=== PATIENT | female | born 1990 | race Caucasian/White ===

== ENCOUNTER 2020-05-07 19:10 | Emergency (ER) | payer OTHER, MEDICAID, SELFPAY ==
--- NOTE | ~2020-05-07 | XR_ITS ---
EXAMINATION: XR foot LT min 3V DATE: 05/07/2020 19:40 INDICATION: Right foot pain, initial encounter TECHNIQUE: Dorsoplantar, lateral, and 2 oblique views of the right foot were obtained. COMPARISON: None. FINDINGS: There is an acute, traumatic, oblique, intra-articular fracture at the lateral base of the fourth middle phalanx which appears to involve greater than 50% of the articular surface. Soft tissue swelling surrounds the fracture. No additional acute osseous findings are evident. IMPRESSION: 1. Acute intra-articular fracture at the lateral base of the fourth middle phalanx. Reviewed, dictated and finalized at location A. IMPRESSION: 1. Acute intra-articular fracture at the lateral base of the fourth middle phal anx.
[2020-05-07 19:30] VITALS: BP 120/82; PULSE 98; RESP 16; TEMP 37.4; O2SAT 99
--- NOTE | 2020-05-07 19:31 | ED.LOWEXIN ---
HPI - Extremity Injury (Lower) General Chief Complaint: Extremity Injury, Lower Stated Complaint: injury Time Seen by Provider: 05/07/20 19:31 Source: patient Mode of arrival: ambulatory Limitations: no limitations History of Present Illness HPI Narrative: Vee Cheatham is a 30 yo female with a PMH of depression, anxiety, gall bladder disease, who comes to express care with injury to L forth toe that occurred this AM at work. Toe was hit with door and has increased pain and swelling throughout the day. Referred here for evaluation by employer. Related Data Home Medications Medication Instructions Recorded Confirmed buspirone 10 mg DAILY 05/07/20 05/07/20 sertraline 100 mg DAILY 05/07/20 05/07/20 Allergies Allergy/AdvReac Type Severity Reaction Status Date / Time No Known Allergies Allergy Verified 05/07/20 19:14 Review of Systems Review of Systems: Narrative: CONSTITUTIONAL: Denies fever, chills, sweats. EYES: Denies visual changes, redness, discharge. ENT: Denies rhinorrhea, congestion, sore throat, otalgia. CARDIOVASCULAR: Denies chest pain, palpitations, edema. RESPIRATORY: Denies dyspnea, wheezing, cough GASTROINTESTINAL: Denies abdominal pain, nausea, vomiting, diarrhea. GENITOURINARY: Denies dysuria, hematuria, abnormal discharge SKIN: Denies rash or itching. NEUROLOGIC: Denies numbness, or focal weakness. PSYCHIATRIC: Denies anxiety or depression. L foot, 4th toe pain and swelling post injury PMFSH Past Medical History Medical History Gall bladder disease Family History Family History Other No acute medical problems Social History Social History (Updated 05/07/20 @ 19:36 by Caroline Ho CNP) Smoking status: Never smoker Alcohol intake: current Comments At time of signature, I agree with nursing past medical, surgical, social and family history. There is no relevant family history pertinent to the presenting complaint. Exam Narrative: Exam Narrative: GENERAL: This is a well-nourished, well-developed patient, in mild distress. HEAD: normocephalic, atraumatic. EYES: Sclera clear/white. Vision is grossly intact. EARS: External ears normal, Hearing grossly intact. NOSE: External nose normal without nasal discharge, nares without redness, no rhinorrhea. THROAT: Mucous membranes moist, NECK: Neck supple, CARDIOVASCULAR: Regular rate and rhythm without murmurs, gallops, or rubs. RESPIRATORY: Clear to auscultation. Breath sounds equal bilaterally. No wheezes, rales, or rhonchi. GASTROINTESTINAL: Abdomen soft, SKIN: warm, intact with no suspicious lesions or rash, good texture and turgor. NEURO: awake, alert, and oriented to person, place and time. There were no obvious focal neurologic abnormalities. EXTREMITIES: Normal range of motion on R- swelling and ecchymosis of 4th toe of L foot, 2+ pedal pulses, minimal movement wo pain in toes 4/5 BACK: Nontender without deformity Course Course Emergency Course: X-ray left foot-findings : acute intra-articular fracture at lateral base of fourth middle phalanx placed om danilo wrap and post op shoe, norco for pain, and referred to orthopedics Vital Signs Vital signs: Vital Signs Temperature 99.4 F 05/07/20 19:30 Pulse Rate 98 05/07/20 19:30 Respiratory Rate 16 05/07/20 19:30 Blood Pressure 120/82 05/07/20 19:30 Pulse Oximetry 99 05/07/20 19:30 Temperature 99.4 F 05/07/20 19:30 Pulse Rate 98 05/07/20 19:30 Respiratory Rate 16 05/07/20 19:30 Blood Pressure 120/82 05/07/20 19:30 Pulse Oximetry 99 05/07/20 19:30 MDM - Extremity Injury (Lower) Differential Diagnosis Differential diagnosis: Likely ankle sprain and strain, fracture of toe and other (Foot fracture vs foot contusion) Discharge Plan Discharge Clinical Impression: Contusion of foot, left Qualifiers: Encounter type: initi
== END 2020-05-07 20:02 | disposition home or self-care (01) ==
PROVIDERS: Emergency Provider Nurse Practitioner; PCP Family Medicine
DX: S90.32XA Contusion of left foot, initial encounter (principal); W22.8XXA Striking against or struck by other objects, initial encounter
CPT/HCPCS: 73630; 99213; G0463

== ENCOUNTER 2020-12-04 16:56 | Emergency (ER) | payer BC, SELFPAY ==
[2020-12-04 17:04] VITALS: BP 132/99; PULSE 82; RESP 16; TEMP 37.1; O2SAT 98
--- NOTE | 2020-12-04 17:21 | ED.URI ---
HPI - URI/Sore Throat General Chief Complaint: Upper Respiratory Infection Stated Complaint: sore throat Time Seen by Provider: 12/04/20 17:21 Source: patient Mode of arrival: ambulatory Limitations: no limitations History of Present Illness HPI Narrative: Vee Cheatham is a 30 yo female with with PMH of depression who comes to express care with c/o sore throat that started Monday is progressively getting worse. History of strep, states she is able to swallow and to eat but does not want to eat denies any symptoms of loss of taste or smell denies any fever. She states that her mucous membranes feel dry even though she is drinking fluids all day Related Data Home Medications Medication Instructions Recorded Confirmed buspirone 10 mg DAILY 05/07/20 05/07/20 sertraline 100 mg DAILY 05/07/20 05/07/20 Vitamins 12/04/20 12/04/20 Allergies Allergy/AdvReac Type Severity Reaction Status Date / Time No Known Allergies Allergy Verified 05/07/20 19:14 Review of Systems Review of Systems: Narrative: CONSTITUTIONAL: Denies fever, chills, sweats. EYES: Denies visual changes, redness, discharge. ENT: Denies rhinorrhea, congestion, has sore throat, states that left tonsil is enlarged , otalgia. CARDIOVASCULAR: Denies chest pain, palpitations, edema. RESPIRATORY: Denies dyspnea, wheezing, cough GASTROINTESTINAL: Denies abdominal pain, nausea, vomiting, diarrhea. GENITOURINARY: Denies dysuria, hematuria, abnormal discharge SKIN: Denies rash or itching. NEUROLOGIC: Denies numbness, or focal weakness. PSYCHIATRIC: Denies anxiety or depression. [facility] Past Medical History Medical History Gall bladder disease No acute medical problems Family History Family History Other No acute medical problems Social History Social History Smoking status: Never smoker Alcohol intake: current Comments At time of signature, I agree with nursing past medical, surgical, social and family history. There is no relevant family history pertinent to the presenting complaint. Blood pressure elevation; may be due to rib pain referred back to her doctor next week to further assess blood pressure Exam Narrative: Exam Narrative: GENERAL: This is a well-nourished, well-developed patient, in mild distress. HEAD: normocephalic, atraumatic. EYES: Sclera clear/white. Vision is grossly intact. EARS: External ears normal,. Hearing grossly intact. NOSE: External nose normal without nasal discharge, nares without redness, no rhinorrhea. THROAT: Mucous membranes moist, posterior pharynx erythema with some white dots on the left side in the posterior pharynx NECK: Neck supple, non-tender CARDIOVASCULAR: Regular rate and rhythm without murmurs, gallops, or rubs. RESPIRATORY: Clear to auscultation. Breath sounds equal bilaterally. No wheezes, rales, or rhonchi. GASTROINTESTINAL: Abdomen soft, SKIN: warm, intact with no suspicious lesions or rash, good texture and turgor. NEURO: awake, alert, and oriented to person, place and time. There were no obvious focal neurologic abnormalities. Steady gait EXTREMITIES: Normal range of motion. BACK: Nontender without deformity Course Course Emergency Course: Patient came to [facility] for assessment of sore throat that started on Monday and is progressively getting worse Strep test performed that was negative- sent for cx- started on amoxicillin Covid test performed was negative Patient started on amoxicillin, cepacol lozenges, discussed handwashing and infection control. Vital Signs Vital signs: Vital Signs Temperature 98.8 F 12/04/20 17:04 Pulse Rate 82 12/04/20 17:04 Respiratory Rate 16 12/04/20 17:04 Blood Pressure 132/99 H 12/04/20 17:04 Pulse Oximetry 98 12/04/20 17:04 Temperature 98.8 F 12/04/20 17:04 Pulse R
== END 2020-12-04 18:03 | disposition home or self-care (01) ==
PROVIDERS: Emergency Provider Nurse Practitioner; PCP Family Medicine
DX: J02.9 Acute pharyngitis, unspecified (principal); Z20.822 Contact with and (suspected) exposure to COVID-19; F32.9 Major depressive disorder, single episode, unspecified
CPT/HCPCS: 87081; 87426; 87880; 99213; C9803; G0463

== ENCOUNTER 2021-02-10 08:40 | Outpatient (CLI) | payer BC, SELFPAY ==
--- NOTE | 2021-02-10 11:30 | NEURO_ITS ---
Impression: # Complains of nocturnal paresthesia of hands. # Moderate left Carpal Tunnel Syndrome. # Mild right Carpal Tunnel Syndrome. # No ulnar neuropathy. # Normal needle/EMG exam. Nerve Conduction Studies Anti Sensory Summary Table Stim Site NR Peak (ms) P-T Amp (?V) Site1 Site2 Delta-P (ms) Dist (cm) Yassine (m/s) Left Median Anti Sensory (2-3nd Digit) Wrist 4.1 14.0 Wrist 2-3nd Digit 4.1 14.0 34 Wrist 4.9 17.5 Wrist 2-3nd Digit 4.1 14.0 34 Right Median Anti Sensory (2-3nd Digit) Wrist 3.8 13.6 Wrist 2-3nd Digit 3.8 14.0 37 Wrist 3.9 15.4 Wrist 2-3nd Digit 3.8 14.0 37 Left Radial Anti Sensory (Base 1st Digit) Wrist 1.6 23.6 Wrist Base 1st Digit 1.6 0.0 Right Radial Anti Sensory (Base 1st Digit) Wrist 1.6 27.7 Wrist Base 1st Digit 1.6 0.0 Left Ulnar Anti Sensory (5th Digit) Wrist 2.2 54.6 Wrist 5th Digit 2.2 14.0 64 Right Ulnar Anti Sensory (5th Digit) Wrist 2.2 20.4 Wrist 5th Digit 2.2 14.0 64 Motor Summary Table Stim Site NR Onset (ms) O-P Amp (mV) Site1 Site2 Delta-0 (ms) Dist (cm) Yassine (m/s) Left Median Motor (Abd Poll Brev) Wrist 5.8 2.9 Elbow Wrist 4.4 25.0 57 Elbow 10.2 2.9 Right Median Motor (Abd Poll Brev) Wrist 4.0 2.0 Elbow Wrist 4.4 26.0 59 Elbow 8.4 1.1 Left Ulnar Motor (Abd Dig Minimi) Wrist 2.0 7.0 A Elbow Wrist 4.6 27.0 59 A Elbow 6.6 5.7 Right Ulnar Motor (Abd Dig Minimi) Wrist 2.6 5.7 A Elbow Wrist 4.7 27.0 57 A Elbow 7.3 4.6 F Wave Studies NR F-Lat (ms) L-R F-Lat (ms) Left Median (Mrkrs) (Abd Poll Brev) 28.13 0.53 Right Median (Mrkrs) (Abd Poll Brev) 27.60 0.53 Left Ulnar (Mrkrs) (Abd Dig Min) 25.86 0.35 Right Ulnar (Mrkrs) (Abd Dig Min) 26.21 0.35 EMG Side Muscle Nerve Root Ins Act Fibs Amp Dur Recrt Comment Right 1stDorInt Ulnar C8-T1 Nml Nml Nml Nml Nml Right Ext Indicis Radial (Post Int) C7-8 Nml Nml Nml Nml Nml Right Ext Digitorum Radial (Post Int) C7-8 Nml Nml Nml Nml Nml Right BrachioRad Radial C5-6 Nml Nml Nml Nml Nml Right PronatorTeres Median C6-7 Nml Nml Nml Nml Nml Right Abd Poll Brev Median C8-T1 Nml Nml Nml Nml Nml Left 1stDorInt Ulnar C8-T1 Nml Nml Nml Nml Nml Left Ext Indicis Radial (Post Int) C7-8 Nml Nml Nml Nml Nml Left Ext Digitorum Radial (Post Int) C7-8 Nml Nml Nml Nml Nml Left BrachioRad Radial C5-6 Nml Nml Nml Nml Nml Left PronatorTeres Median C6-7 Nml Nml Nml Nml Nml Left Abd Poll Brev Median C8-T1 Nml Nml Nml Nml Nml MTDD
== END 2021-02-10 08:41 | disposition home or self-care (01) ==
PROVIDERS: PCP Family Medicine; Visit Provider Family Medicine
DX: G56.03 Carpal tunnel syndrome, bilateral upper limbs (principal)
CPT/HCPCS: 95886; 95911

== ENCOUNTER 2021-11-14 01:42 | Emergency (ER) | payer BC, SELFPAY ==
[2021-11-14 01:51] VITALS: BP 141/90; PULSE 94; RESP 18; TEMP 36.4; O2SAT 97
--- NOTE | 2021-11-14 04:03 | PC.NURSE ---
Pt to intake desk and tells RN to Take my name of the list. Pt ambulated out in no distress w/ steady gait.
== END 2021-11-14 04:26 | disposition left against medical advice (07) ==
PROVIDERS: PCP Family Medicine
DX: S69.92XA Unspecified injury of left wrist, hand and finger(s), initial encounter (principal)
CPT/HCPCS: 99199

== ENCOUNTER 2021-11-14 14:21 | Emergency (ER) | payer BC, SELFPAY ==
--- NOTE | ~2021-11-14 | XR_ITS ---
EXAMINATION: XR finger 1st LT min 2V DATE: 11/14/2021 15:09 INDICATION: Left thumb pain. Fall. TECHNIQUE: 3 views of left thumb were obtained. COMPARISON: None. FINDINGS: There is an oblique fracture of diaphysis of first metacarpal. The distal fracture fragment demonstrates one cortical width radial displacement, 32 degrees palmar angulation, and impaction. Ruby int spaces are normal. IMPRESSION: 1. Oblique fracture of diaphysis of first metacarpal. Reviewed, dictated and finalized at location A. [employer]
[2021-11-14 14:58] VITALS: BP 145/94; PULSE 93; RESP 16; TEMP 37.2; O2SAT 100
--- NOTE | 2021-11-14 15:35 | ED.UPPEXIN ---
HPI - Extremity Injury (Upper) General Chief Complaint: Extremity Injury, Upper Stated Complaint: left thumb injury Time Seen by Provider: 11/14/21 15:36 Source: patient and RN notes reviewed Mode of arrival: ambulatory Limitations: no limitations History of Present Illness HPI narrative: 31-year-old female presents with concern for injury to the first digit of her left hand. Reports yesterday she tripped over her dogs causing pain and swelling at the base of the first digit. She reports she took Tylenol. complaint: injury to: left and finger Related Data Home Medications Medication Instructions Recorded Confirmed buspirone 10 mg DAILY 05/07/20 05/07/20 sertraline 100 mg DAILY 05/07/20 05/07/20 Vitamins 12/04/20 12/04/20 phentermine mg 11/14/21 topiramate 11/14/21 Allergies Allergy/AdvReac Type Severity Reaction Status Date / Time No Known Allergies Allergy Verified 05/07/20 19:14 Review of Systems Review of Systems: CONSTITUTIONAL: Denies malaise, chills, sweats, or fever. CARDIOVASCULAR: Denies chest pain, palpitations, or edema. RESPIRATORY: Denies cough or dyspnea. SKIN: Denies rash or itching, redness, open skin MUSCULOSKELETAL: Reports bruising, swelling, pain to the base of the first digit of the left hand NEUROLOGIC: Denies numbness, weakness All systems reviewed & are unremarkable except as noted in HPI and below PMFSH Past Medical History Medical History Gall bladder disease No acute medical problems Family History Family History Other No acute medical problems Social History Social History Smoking status: Never smoker Alcohol intake: current Comments At time of signature, agree with nursing past medical, surgical, social and family history. There is no relevant family history pertinent to the presenting complaint Exam Narrative: GENERAL: Well-appearing, well-nourished, and in no acute distress. HEAD: Normocephalic, atraumatic. EYES: PERRLA, conjunctivae clear NECK: Supple. CHEST: Speaks in full sentences. No respiratory distress. HEART: Regular rate and rhythm. Normal and equal peripheral pulses. EXTREMITIES: First digit of left hand has normal strength and sensation, limited range of motion. Moderate edema and ecchymosis at the base of the digit. 5/5 strength with digit flexion. Normal sensation with sensitivity to light touch and pain. Tenderness to the base of the digit. No open wounds, no skin tenting, no devitalized tissue or atrophy, no trophic changes, no obvious deformity, alignment normal, nearby joints and structures intact. Distal pulses palpable and equal bilaterally, skin warm, dry, pink. Capillary refill less than 3 seconds. Can perform okay sign, no scissoring, can perform thumbs up sign SKIN: Warm, dry, no rash. NEURO: Alert and oriented x3. PSYCH: Normal mood and affect Course Course Emergency Course: Patient is aware of diagnosis, understands and agrees to treatment plan. Anticipatory guidance given. Patient agrees to follow-up as directed and is aware of reasons to seek care at the emergency department. Portions of this record may have been created with voice recognition software Level of Care: Express Care Visit Vital Signs Vital signs: Vital Signs Temperature 99.0 F 11/14/21 14:58 Pulse Rate 93 11/14/21 14:58 Respiratory Rate 16 11/14/21 14:58 Blood Pressure 145/94 H 11/14/21 14:58 Pulse Oximetry 100 11/14/21 14:58 Temperature 99.0 F 11/14/21 14:58 Pulse Rate 93 11/14/21 14:58 Respiratory Rate 16 11/14/21 14:58 Blood Pressure 145/94 H 11/14/21 14:58 Pulse Oximetry 100 11/14/21 14:58 Reviewed. Procedures Orthopedic Splinting/Casting Injury #1: Splinting/Casting Date: 11/14/21 Splinting/Casting Time: 15:52 Side: left Upper
== END 2021-11-14 16:04 | disposition home or self-care (01) ==
PROVIDERS: Emergency Provider Nurse Practitioner; PCP Family Medicine
DX: S62.202A Unspecified fracture of first metacarpal bone, left hand, initial encounter for closed fracture (principal); W18.09XA Striking against other object with subsequent fall, initial encounter
CPT/HCPCS: 29125; 73140; 99214; G0463

== ENCOUNTER → 2021-11-22 03:54 | Outpatient (CLI) | payer BC, SELFPAY ==
[2021-11-22 20:23] LABS: SARS-CoV-2 RNA PCR Negative
== END ==
PROVIDERS: PCP Family Medicine; Visit Provider Plastic Surgery
DX: Z01.812 Encounter for preprocedural laboratory examination (principal); Z20.822 Contact with and (suspected) exposure to COVID-19
CPT/HCPCS: C9803; U0003; U0005

== ENCOUNTER 2021-11-25 01:41 | Day surgery (SDC) | payer BC, SELFPAY ==
[2021-11-15 15:41] VITALS: BMI 32.7
--- NOTE | 2021-11-15 15:51 | PC.NURSE ---
Report to the Outpatient Waiting Room, entrance under the green pavilion located off [facility], at time 0630 on date 11/25/21. OR Time: 0830. - You will be asked a series of questions to screen for COVID 19 for your protection. - A mask is required within the hospital. - No visitors are allowed at this time. Patient visitors will be guided where to wait when not with patient. Preoperative COVID Testing Requirements: COVID TEST 11/22 AT 0800 No COVID Test needed if: (proof is required; if not received patient will have Rapid Test prior to entry) - Patient has received COVID Vaccine at least 14 days prior to procedure date or - Patient has positive COVID test result within last 90 days of surgery date. COVID Test needed if above criteria is not met If not COVID vaccinated a COVID test must be conducted within 72 hours of surgery and patient is asked to isolate self from time of testing until procedure. You will go to the [facility] for your COVID testing. The [facility] site is located at the corner of [address] [facility]. You will only be called if COVID results are positive and your surgeon may reschedule your elective surgery date. Patients may have clear liquids (water, carbonated beverages, clear teas, apple juice) until 3 hours prior to surgery with a maximum of 20 ounces. - No food from midnight until time of surgery Take the following medications with a SIP of water the morning of surgery: BUSPIRONE, SERTRALINE, PAIN PILL (IF NEEDED) Medications to discontinue per physician: VITAMINS/SUPPLEMENTS Date to take last dose: 11/21/21 Please no make-up, nail rwandan, hairspray, perfume, deodorant, or body powder the day of surgery. No jewelry (including any body piercings) or valuables the day of surgery, leave them at home. Please take a shower or bath the night before, or the morning of, surgery with an antibacterial soap. Wear comfortable, loose fitting clothing. - Jewelry must be removed prior to entering the operating room. Rings and piercings that are not removed may be cut off. - The hospital will not accept responsibility for valuables. - Please leave all valuables, including medications, at home the day of surgery. If you are going home after surgery, a licensed carrier driver must drive you home. - NO public transportation without another adult. - We recommend that an adult stay with you for 24 hours following discharge. - We also recommend that you do not drive, make important decision, drink alcoholic beverages, or take any drugs that were not prescribed by your health care provider for at least 24 hours after your discharge time. Follow any additional instructions given to you from your surgeon. Telephone instructions given to GISSEL BRADLEY and asked if any additional questions and then verbalized understanding. Patient advised to call surgeon office or pre surgery nurse liaison [phone] if any additional questions.
--- NOTE | 2021-11-24 09:26 | P.PNAN_ITS ---
Anes - Initial Pre Proc Eval Procedure: Operation Date: 11/25/21 08:30 Proposed Procedures p Closed Reduction, Possible Open Reduction Internal Fixation Left First Metacarpal Fracture - Herrera Hwang MD Date/Time: 11/24/21 09:26 Surgeon: Herrera Hwang MD Pre Op Diagnosis: left 1st metacarpal fx Patient Data Age: 31 Gender: F Height: 1.57 m Weight: 81.19 kg Allergies Allergy/AdvReac Type Severity Reaction Status Date / Time No Known Allergies Allergy Verified 11/25/21 06:40 Home Medications Medication Instructions Recorded Confirmed Type buspirone 10 mg PO DAILY 05/07/20 11/25/21 History sertraline 100 mg PO DAILY 05/07/20 11/25/21 History Vitamins 12/04/20 12/04/20 History hydrocodone-acetaminophen 1 tablet PO Q6H PRN #10 tablet 11/14/21 11/25/21 Rx ibuprofen 600 mg PO QID PRN #30 tablet 11/14/21 11/25/21 Rx phentermine 37.5 mg PO DAILY 11/14/21 11/25/21 History multivitamin 1 tablet PO DAILY 11/15/21 11/25/21 History Patient hx anesthesia problems: none Family hx anesthesia problems: none Results Review: All pre-operative results and documents have been reviewed as part of the pre-operative evaluation. [facility] Past Medical History Medical History Anxiety Depression Gall bladder disease No acute medical problems Family History Family History Other No acute medical problems Social History Social History Smoking packs per day: 0.5 Smoking cigarettes per day: 10.0 Years smoked: 12 Smoking pack-years: 6.00 Smoking status: Former smoker Tobacco type: cigarettes Smoking end date: 09/13/21 Alcohol intake: current Alcohol use details: 3/MONTH Substance use: never Substance use type: does not use Living arrangements: with family Additional living arrangements comments: BOYFRIEND AND CHILD Spiritual care concerns: No Anes - Eval Final PreProcedure Day of Procedure 11/24/21 09:26 Patient weight: obese Heart: regular rate and rhythm Lungs: clear to auscultation and normal air movement Airway: Mallampati scale class II Neurological: alert and oriented Last oral intake: >/= 8 hours ASA classification: II Emergent: no Anesthetic plan: proceed Anesthesia type and monitoring: general LMA and standard monitoring Results Review: All pre-operative results and documents have been reviewed as part of the pre-operative evaluation. Informed Consent: The patient's anesthetic plan and its attendant risks and benefits were discussed with the patient/family/POA. Questions were solicited and answers provided to the satisfaction of the patient/family/POA.
--- NOTE | 2021-11-24 17:27 | PM.HPGS ---
History of Present Illness History of Present Illness Consent: Risks, benefits, and alternatives have been discussed and questions answered. Patient agrees to proceed with procedure. Chief complaint: left 1st metacarpal fx Narrative: Vee Cheatham is a 31 year old female who sustained a closed fracture of the left thumb metacarpal November 13 walking her dog at her home on a leash. She fell to the ground. x-rays done that day indicate an apex dorsal proximal shaft fracture that is oblique. There is slight comminution. She has no regional osteoarthritis and no evidence osteoporosis. Our plan is for closed or possible open reduction and internal fixation with pins or plates. She is aware of possible complications such as nerve injury, infection in the skin or bone, loss of the fixation, some degree of malalignment. There are other possible complications and she would like to proceed under general anesthesia Review of Systems Review of Systems: CONSTITUTIONAL: Denies malaise, chills, sweats, or fever. CARDIOVASCULAR: Denies chest pain, palpitations, or edema. RESPIRATORY: Denies cough or dyspnea. SKIN: Denies rash or itching, redness, open skin MUSCULOSKELETAL: Reports bruising, swelling, pain to the base of the first digit of the left hand NEUROLOGIC: Denies numbness, weakness All systems reviewed & are unremarkable except as noted in HPI and below PMFSH Past Medical History Medical History Anxiety Depression Gall bladder disease No acute medical problems Family History Family History Other No acute medical problems Social History Social History Smoking packs per day: 0.5 Smoking cigarettes per day: 10.0 Years smoked: 12 Smoking pack-years: 6.00 Smoking status: Former smoker Tobacco type: cigarettes Smoking end date: 09/13/21 Alcohol intake: current Alcohol use details: 3/MONTH Substance use: never Substance use type: does not use Additional living arrangements comments: BOYFRIEND AND CHILD Spiritual care concerns: No Meds Home Medications and Allergies Home Medications Medication Instructions Recorded Confirmed Type buspirone 10 mg PO DAILY 05/07/20 11/15/21 History sertraline 100 mg PO DAILY 05/07/20 11/15/21 History Vitamins 12/04/20 12/04/20 History hydrocodone-acetaminophen 1 tablet PO Q6H PRN #10 tablet 11/14/21 11/15/21 Rx ibuprofen 600 mg PO QID PRN #30 tablet 11/14/21 11/15/21 Rx phentermine 37.5 mg PO DAILY 11/14/21 11/15/21 History multivitamin 1 tablet PO DAILY 11/15/21 11/15/21 History Allergies Allergy/AdvReac Type Severity Reaction Status Date / Time No Known Allergies Allergy Verified 11/15/21 15:38 Exam Narrative: this patient is alert and cooperative she is 5 ft 2 Weight is 179 lb and provide an excellent history. HENMT: Other: there are no functional abnormalities in the head and neck Eyes: Sclera: sclerae normal Chest: Other: clear to auscultation Resp: Effort & Inspection: normal respiratory effort Cardio: Rate: regular rate Rhythm: regular rhythm GI: GI Palp: Yes Soft to palpation Skin: General skin exam: normal color and no rashes or lesions noted Neuro: General: gait normal Speech: normal speech Motor exam (neuro): Normal motor muscle tone present throughout Extrem: General: normal exam except as noted Other: tenderness and mild swelling of the left thumb metacarpal Psych: Mental Status: mental status grossly normal Assessment and Plan Assessment and plan (1) Closed fracture of left thumb: Code(s): S62.502A - Fracture of unspecified phalanx of left thumb, initial encounter for closed fracture Status: Acute Additional Plan closed or open reduction and internal fixation of the left thumb metacarpal fracture
[2021-11-25] VITALS (10 sets, daily range): BP systolic 115–132; BP diastolic 64–85; PULSE 80–100; RESP 16–20; TEMP 36.1–36.7; O2SAT 97–100
--- NOTE | ~2021-11-25 | XR_ITS ---
EXAMINATION: XR surgery orthopedic DATE: 11/25/2021 10:55 INDICATION: ORIF of a fracture of the left first metacarpal TECHNIQUE: 13 fluoroscopic images of the left thumb were obtained during procedure performed by Dr. Neto Alcantara. Radiologist was not present for the imaging or procedure. The amount of fluoroscopy time used d uring this procedure was 1.9 minutes. COMPARISON: 11/14/2021 FINDINGS: Initial images demonstrate 2 mm ulnar displacement of an oblique mid diaphyseal fracture of the left first metacarpal. Subsequent images demonstrate percutaneous a wire advanced obliquely across the serge gth of the metacarpal likely for mobilization and dorsal plate and screw fixation of the fracture. Mi nimal change in 1.5 mm residual ulnar displacement following removal of the percutaneous wire. No oth er fractures identified. Normal alignment and joint spaces throughout the remainder the visualized le ft hand. IMPRESSION: 1. Near-anatomic alignment post dorsal plate and screw fixation of a mid diaphyseal fracture of the l eft first metacarpal. Reviewed, dictated and finalized at location A. HEN CLERK IMPRESSION: 1. Near-anatomic alignment post dorsal plate and screw fixation of a mid diaphy seal fracture of the left first metacarpal.
[2021-11-25] MEDS: LACTATED RINGERS 1,000 ML 30 ML IV CONT ×2 (07:00→11:50)
[2021-11-25] MEDS: ACETAMINOPHEN 500 MG TABLET 1000 MG PO (07:00)
[2021-11-25] MEDS: KETOROLAC 15 MG/ML VIAL (*BKC) IV PUSH (07:33)
--- NOTE | 2021-11-25 08:15 | WPDHPUPDATE1 ---
History and Physical Update Update Date/Time: 11/25/21 08:15 History and Physical has been reviewed, including an updated exam of the patient. There are NO changes in the patient's condition. Risks, benefits, and alternatives have been discussed and questions answered. Patient agrees to proceed with procedure.
[2021-11-25] MEDS: ceFAZolin 2 GM/D5W 50 ML 2 GM/50 ML BAG IVPB (08:26)
[2021-11-25] MEDS: LIDO 1%/EPINEPHRINE/PF 1:200,000 30 ML VIAL 20 ML XX (09:01)
[2021-11-25] MEDS: BUPIVACAINE HCL 0.25% PF 30 ML VIAL INFILTRATE (10:51)
--- NOTE | 2021-11-25 11:27 | W.PM.PROC2 ---
Procedure Note - Detailed Date of Procedure 11/25/21 Pre-op Diagnosis left 1st metacarpal fx Post-op Diagnosis same Procedure Performed Open reduction and internal plate fixation of the left 1st metacarpal Surgeon Herrera Hwang MD [employer] Jaylen Anesthesia general Description of Procedure The patient still had her splint on in the holding area and the thumb area was indicated with a the skin marker. She was taken to the operating room and placed supine on the operating table. The splint was removed and time-out was held and confirmed. The extremity was prepped and draped in usual fashion. She was given general endotracheal anesthesia. The image intensifier was brought in and we made an attempt to reduce the fracture. This was not successful. The marking was placed on the 1st metacarpal for surgical access. This area was infiltrated with 1% lidocaine with epinephrine. The tourniquet was inflated under the compression wrap to 250 mmHg. The wrap was removed. The incision was made as marked. The interspace between the extensor pollicis longus and extensor pollicis brevis was incised over the length of the metacarpal and the fracture site was identified. There was no comminution found. The fracture was somewhat oblique. It was easily reduced. It was initially retained with a longitudinal 0.6 mm K-wire. Anatomic reduction was obtained. We elected to use a semi tubular plate with 10 holes from the modular handset. This was applied and fixed with 1.5 mm screws and the fixation was also imaged. One hole near the fracture line did not receive a screw. A near anatomic alignment was maintained throughout this part of the procedure.. The site was irrigated the tourniquet was released the periosteal tissue was repaired with 4-0 Monocryl over the plate. The extensor tendons were not involved with the repair. Some subcutaneous sutures were placed again protecting neurovascular structures. The skin was closed with a running 4-0 Monocryl suture. A dressing was applied and a thumb spica splint allowing IP joint range of motion. Preoperatively she was given 2 g of Ancef, oral Tylenol 1000 mg, and Toradol 15 mg IV. postop she is prescribed some refill on her 600 mg ibuprofen she has some hydrocodone at home and prefers as little of that as possible Estimated Blood Loss -5.0 Tourniquet Time 9 Drains No Packing No Pathology none sent Complications No immediate complications Condition stable Disposition PACU
== END 2021-11-25 13:32 | disposition home or self-care (01) ==
PROVIDERS: PCP Family Medicine; Visit Provider Plastic Surgery
PROC: (CPT 26615; principal; 2021-11-25 08:30)
DX: S62.242A Displaced fracture of shaft of first metacarpal bone, left hand, initial encounter for closed fracture (principal); W18.39XA Other fall on same level, initial encounter; F41.8 Other specified anxiety disorders; Z87.891 Personal history of nicotine dependence; E66.9 Obesity, unspecified; Z68.31 Body mass index [BMI] 31.0-31.9, adult
CPT/HCPCS: 26615; A4565; A9270; C1713; J0690; J1100; J1885; J2250; J2405; J2704; J3010; J7120

== ENCOUNTER 2022-06-16 15:36 | Emergency (ER) | payer BC, SELFPAY ==
--- NOTE | 2022-06-16 15:40 | ED.URI ---
HPI - URI/Sore Throat General Stated Complaint: uri Time Seen by Provider: 06/16/22 15:40 Source: patient Mode of arrival: ambulatory Limitations: no limitations History of Present Illness HPI Narrative: Ms. Cheatham is a 32-year-old female patient presenting to the clinic today with complaints of possible upper respiratory infection. She reports she is having sore throat, body aches, nasal congestion, chills, low-grade temperature, and headache x1 day she reports the symptoms began last night. Did take a COVID test earlier this morning and that was negative. No known exposure to anybody with COVID, flu, or strep. MD elicited complaint: sore throat and nasal congestion Related Data Home Medications Medication Instructions Recorded Confirmed buspirone 10 mg tablet 10 mg PO DAILY 05/07/20 11/25/21 sertraline 100 mg tablet 100 mg PO DAILY 05/07/20 11/25/21 Vitamins 12/04/20 12/04/20 phentermine 37.5 mg tablet 37.5 mg PO DAILY 11/14/21 11/25/21 multivitamin 1 tablet PO DAILY 11/15/21 11/25/21 Allergies Allergy/AdvReac Type Severity Reaction Status Date / Time No Known Allergies Allergy Verified 11/25/21 06:40 Review of Systems Review of Systems: Pertinent positives per HPI. Patient denies any rash, visual changes, dizziness, shortness of breath, chest pain, palpitations, nausea, vomiting, diarrhea, constipation, abdominal pain, or any urinary issues. PMFSH Past Medical History Medical History Anxiety Depression Gall bladder disease No acute medical problems Family History Family History Other No acute medical problems Social History Social History Smoking packs per day: 0.5 Smoking cigarettes per day: 10.0 Years smoked: 12 Smoking pack-years: 6.00 Smoking status: Former smoker Tobacco type: cigarettes Smoking end date: 09/13/21 Alcohol intake: current Alcohol use details: 3/MONTH Substance use: never Substance use type: does not use Additional living arrangements comments: BOYFRIEND AND CHILD Spiritual care concerns: No Comments At the time of my signature, I reviewed and agree with the nursing past medical, surgical, social, and family history. There is no relevant family history pertinent to the patient complaint. Exam Narrative: General: Well-developed, obese, in no apparent distress Head: Normocephalic, atraumatic Eyes: Pupils equally round and reactive to light bilaterally, EOM intact, sclera and conjunctive clear, no discharge, lids normal Ears: TMs intact and clear, ear canals clear, no drainage, grossly hearing normal. Nose: Nares patent, clear nasal discharge, no inflammation, no sinus tenderness. Mouth: Oral pharynx without lesions or masses, good dentition, MMM. Oropharynx mildly red, postnasal drip Neck: Supple, trachea midline, no enlargement of anterior or posterior cervical nodes, no thyroid masses or goiter palpable. Cardio: Regular rate and rhythm, s1 and s2 normal, no murmur appreciated. Resp: Clear to auscultation bilaterally, no rhonchi, rales, wheezing or rubs Course Course Emergency Course: Portions of this record may have been created with voice recognition software. Level of Care: Express Care Visit Vital Signs Vital signs: Vital signs reviewed MDM - URI/Sore Throat MDM Narrative Medical decision making narrative: At the time of visit patient is resting comfortably on the exam table. COVID testing was completed in the clinic and was negative. I suspect patient has viral syndrome likely to be COVID. Recommend retesting for COVID in 2 days. Supportive measures were discussed with the patient she voiced understanding of discharge instructions and agrees to treatment plan. Differential Diagnosis Differential diagnosis: Likely upper respiratory infection, otit
[2022-06-16 15:53] VITALS: BP 137/91; PULSE 117; RESP 16; TEMP 37.3; O2SAT 100
== END 2022-06-16 16:24 | disposition home or self-care (01) ==
PROVIDERS: Emergency Provider Nurse Practitioner Family; PCP Family Medicine
DX: B34.9 Viral infection, unspecified (principal); Z20.822 Contact with and (suspected) exposure to COVID-19; Z87.891 Personal history of nicotine dependence; F41.9 Anxiety disorder, unspecified; F32.A Depression, unspecified
CPT/HCPCS: 87426; 99213; C9803; G0463

== ENCOUNTER 2022-10-08 08:04 | Emergency (ER) | payer BC, SELFPAY ==
[2022-10-08 08:17] VITALS: BP 129/82; PULSE 81; RESP 18; TEMP 36.2; O2SAT 100
--- NOTE | 2022-10-08 08:19 | ED.URI ---
HPI - URI/Sore Throat General Chief Complaint: Upper Respiratory Infection Stated Complaint: Sore Throat, Ears Irritation Time Seen by Provider: 10/08/22 08:24 Source: patient Mode of arrival: ambulatory Limitations: no limitations History of Present Illness HPI Narrative: 32 y/o female presented for c/o right ear pain since last night and right sided throat pain for 4 days. Endorses she has had sinus pressure and congestion for several weeks. Endorses productive cough yellow/white sputum. Rates pain 5/10. States dtr looked in her ear and saw a scratch with some bleeding, which occurred before the pain. Denies tinnitus, dizziness, n/v/d/f/c. Taking Tylenol and ibuprofen. Denies sick contacts. Related Data Home Medications Medication Instructions Recorded Confirmed buspirone 10 mg tablet 10 mg PO DAILY 05/07/20 10/08/22 sertraline 100 mg tablet 100 mg PO DAILY 05/07/20 10/08/22 multivitamin 1 tablet PO DAILY 11/15/21 10/08/22 Allergies Allergy/AdvReac Type Severity Reaction Status Date / Time No Known Allergies Allergy Verified 10/08/22 08:17 Review of Systems Review of Systems: CONSTITUTIONAL: Denies malaise, chills, or fever. EYES: Denies visual changes, redness, or discharge. ENT: Denies rhinorrhea, congestion, sinus pain, Reports ear pain and sore throat. CARDIOVASCULAR: Denies chest pain, palpitations, or edema. RESPIRATORY: Denies cough or dyspnea. GASTROINTESTINAL: Denies abdominal pain, nausea, vomiting, diarrhea SKIN: Denies rash or itching. MUSCULOSKELETAL: Denies myalgia. NEUROLOGIC: Denies headache. All systems reviewed & are unremarkable except as noted in HPI and below PMFSH Past Medical History Medical History Anxiety Depression Gall bladder disease No acute medical problems Family History Family History Other No acute medical problems Social History Social History Smoking packs per day: 0.5 Smoking cigarettes per day: 10.0 Years smoked: 12 Smoking pack-years: 6.00 Smoking status: Former smoker Tobacco type: cigarettes Smoking end date: 09/13/21 Alcohol intake: current Alcohol use details: 3/MONTH Substance use: never Substance use type: does not use Additional living arrangements comments: BOYFRIEND AND CHILD Spiritual care concerns: No Comments At time of signature, agree with nursing past medical, surgical, social and family history. There is no relevant family history pertinent to the presenting complaint Exam Narrative: GENERAL: Well-appearing, well-nourished EYES: PERRLA, conjunctivae clear ENT: Nares clear. Mucous membranes moist. TMs pearly smith with normal light reflex bilaterally; no tragal tenderness. Right canal with scant bloody drainage without active bleeding. Oropharynx erythematous without lesions. Tonsils enlarged 2+and without exudate, no drooling, no hoarseness, no trismus, uvula midline. NECK: Supple. No lymphadenopathy, endorses right anterior cervical tenderness with palpation CHEST: Clear to auscultation, breath sounds equal. No wheezing, rhonchi, rales, or stridor. HEART: Regular rate and rhythm. No murmur heard. SKIN: Warm, dry, no rash. NEURO: Alert and oriented x3. Course Course Emergency Course: Patient is aware of diagnosis, understands and agrees to treatment plan. Anticipatory guidance given. Patient agrees to follow-up as directed and is aware of reasons to seek care at the emergency department. Portions of this record may have been created with voice recognition software Level of Care: Express Care Visit Vital Signs Vital signs: Vital Signs Temperature 97.1 F L 10/08/22 08:17 Pulse Rate 81 10/08/22 08:17 Respiratory Rate 18 10/08/22 08:17 Blood Pressure 129/82 10/08/22 08:17 Pulse Oximetry 100 10/08/22 08:17 Oxygen Delivery Room
== END 2022-10-08 08:42 | disposition home or self-care (01) ==
PROVIDERS: Emergency Provider Nurse Practitioner Family; PCP Family Medicine
DX: J06.9 Acute upper respiratory infection, unspecified (principal); Z87.891 Personal history of nicotine dependence
CPT/HCPCS: 99213; G0463

== ENCOUNTER 2023-02-15 09:23 | Emergency (ER) | payer BC, SELFPAY ==
[2023-02-15 09:33] VITALS: BP 141/98; PULSE 82; RESP 16; TEMP 37.2; O2SAT 99
--- NOTE | 2023-02-15 09:33 | ED.DIZZY ---
HPI - Dizziness General Chief Complaint: Dizziness Stated Complaint: dizziness Time Seen by Provider: 02/15/23 09:32 Source: patient Mode of arrival: ambulatory Limitations: no limitations History of Present Illness HPI Narrative: Vee is a 32-year-old female patient presenting to the clinic today with complaints of dizziness, lightheadedness, and visual changes. States she is having blurry vision with some floaters. She fell on Monday-tripped on a sidewalk and landed prone. Denies hitting her head but she does not recall the fall. States she is also having a little bit of right wrist pain. She denies headache currently. Stated she had a sharp pain in her head when she was coming into the clinic today. She contacted her PCP and they told her to come to the express care or urgent care to be evaluated as they did not have openings in the clinic. MD elicited complaint: dizziness, lightheadedness and other (Visual changes) Related Data Home Medications Medication Instructions Recorded Confirmed multivitamin 1 tablet PO DAILY 11/15/21 02/15/23 bupropion HCl 150 mg 24 hr tablet, mg PO 02/15/23 extended release escitalopram oxalate 10 mg tablet mg 02/15/23 lorazepam 0.5 mg tablet 0.5 mg PO DIRECTED 02/15/23 02/15/23 norgestimate 0.18 mg/0.215 mg/0.25 1 tablet PO DAILY 02/15/23 02/15/23 mg-ethinyl estradiol 25 mcg tablet (Tri-Lo-Trixie) Allergies Allergy/AdvReac Type Severity Reaction Status Date / Time No Known Allergies Allergy Verified 02/15/23 09:30 Review of Systems Review of Systems: Pertinent positives per HPI. Patient denies any fever, chills, rash, cough, runny nose, sore throat, shortness of breath, chest pain, palpitations, nausea, vomiting, diarrhea, constipation, abdominal pain, or any urinary issues. [facility] Past Medical History Medical History Anxiety Depression Gall bladder disease No acute medical problems Family History Family History Other No acute medical problems Social History Social History Smoking packs per day: 0.5 Smoking cigarettes per day: 10.0 Years smoked: 12 Smoking pack-years: 6.00 Smoking status: Former smoker Tobacco type: cigarettes Smoking end date: 09/13/21 Alcohol intake: current Alcohol use details: 3/MONTH Substance use: never Substance use type: does not use Living arrangements: with family Additional living arrangements comments: BOYFRIEND AND CHILD Spiritual care concerns: No Comments At the time of my signature, I reviewed and agree with the nursing past medical, surgical, social, and family history. There is no relevant family history pertinent to the patient complaint. Exam Narrative: General: Well-developed, well nourished, in no apparent distress Head: Normocephalic, atraumatic Eyes: Pupils equally round and reactive to light bilaterally, EOM intact, sclera and conjunctive clear, no discharge, lids normal, visual acuity OD 20/40, OS 20/25, OU 20/25 Ears: TMs intact and clear, ear canals clear, no drainage, grossly hearing normal. Nose: Nares patent, no discharge, no inflammation, no sinus tenderness. Mouth: Oropharynx without lesions or masses, good dentition, MMM. Tongue midline, even rise and fall of uvula Neck: Supple, trachea midline, no enlargement of anterior or posterior cervical nodes, no thyroid masses or goiter palpable. Cardio: Regular rate and rhythm, s1 and s2 normal, no murmur appreciated. Resp: Clear to auscultation bilaterally anteriorly and posteriorly, no rhonchi, rales, wheezing or rubs Musculoskeletal: No deformity, tender to palpation over the lateral ulnar aspect of the wrist, pain with ulnar deviation and radial deviation, grossly normal range of motion, muscle strength strong and equal, peripheral pulse strong, no edema, no
== END 2023-02-15 09:47 | disposition short-term general hospital (02) ==
PROVIDERS: Emergency Provider Nurse Practitioner Family; PCP Family Medicine
DX: R42 Dizziness and giddiness (principal); H53.9 Unspecified visual disturbance; W01.0XXA Fall on same level from slipping, tripping and stumbling without subsequent striking against object, initial encounter; F41.9 Anxiety disorder, unspecified; F32.A Depression, unspecified; Z87.891 Personal history of nicotine dependence
CPT/HCPCS: 99212; G0463

== ENCOUNTER 2023-02-15 10:25 | Emergency (ER) | payer BC, SELFPAY ==
--- NOTE | ~2023-02-15 | CT_ITS ---
EXAMINATION: CT brain wo con INDICATION: Head injury COMPARISON: None TECHNIQUE: Standard unenhanced head CT. The dose-length product (DLP) was 529.67 mGy-cm. The mA was a djusted according to patient size. Iterative reconstruction technique was employed. FINDINGS: There is no intracranial hemorrhage, acute infarction, or abnormal mass lesion. The ventric les are normal. There is no abnormal mass effect or midline shift. The smith-white matter differentiat ion is normal. The basal cisterns are patent. The orbits are normal. The paranasal sinuses, mastoids and calvarium are normal. IMPRESSION: 1. No acute intracranial abnormality. Reviewed, dictated and finalized at location B.
--- NOTE | ~2023-02-15 | CT_ITS ---
EXAMINATION: CT cervical spine wo con DATE: 02/15/2023 10:46 INDICATION: Head injury TECHNIQUE: Computed tomography (CT) of the cervical spine was performed without intravenous contrast. The dose-length product (DLP) was 468.90 mGy-cm. Automated exposure control and iterative reconstruc tion technique were employed. COMPARISON: None FINDINGS: No fracture, dislocation, or subluxation. There is mild loss of intervertebral disc space h eight at C4-5. Tiny endplate spurs are noted at C3-4 and C4-5. The odontoid process is intact. The pr evertebral soft tissues are normal. IMPRESSION: 1. Mild cervical spondylosis without acute findings. Reviewed, dictated and finalized at location B.
[2023-02-15 10:47] VITALS: BP 140/94; PULSE 85; RESP 16; TEMP 36.8; O2SAT 99
--- NOTE | 2023-02-15 11:09 | ED.DIZZY ---
HPI - Dizziness General Chief Complaint: Dizziness Stated Complaint: dizzy Time Seen by Provider: 02/15/23 11:02 History of Present Illness HPI Narrative: Pt tripped and fell on sidewalk 5 days ago and landed on belly and delia head but did not strike head or lose consciousness. Pt says she has just not felt right since, has been a little lightheaded and had intermittent blurry vision. Pt denies BEE or one sided weakness or tingling. Pt went to [facility] and was sent here for CT. Pt says she had some blurry vision from right eye when doing visula acuity there but this has completely resolved now. Related Data Home Medications Medication Instructions Recorded Confirmed multivitamin 1 tablet PO DAILY 11/15/21 02/15/23 bupropion HCl 150 mg 24 hr tablet, mg PO 02/15/23 extended release escitalopram oxalate 10 mg tablet mg 02/15/23 lorazepam 0.5 mg tablet 0.5 mg PO DIRECTED 02/15/23 02/15/23 norgestimate 0.18 mg/0.215 mg/0.25 1 tablet PO DAILY 02/15/23 02/15/23 mg-ethinyl estradiol 25 mcg tablet (Tri-Lo-Trixie) Allergies Allergy/AdvReac Type Severity Reaction Status Date / Time No Known Allergies Allergy Verified 02/15/23 09:30 Review of Systems Review of Systems: All systems reviewed & are unremarkable except as noted in HPI and below PMFSH Past Medical History Medical History Anxiety Depression Gall bladder disease No acute medical problems Family History Family History Other No acute medical problems Social History Social History Smoking packs per day: 0.5 Smoking cigarettes per day: 10.0 Years smoked: 12 Smoking pack-years: 6.00 Smoking status: Former smoker Tobacco type: cigarettes Smoking end date: 09/13/21 Alcohol intake: current Alcohol use details: 3/MONTH Substance use: never Substance use type: does not use Living arrangements: with family Additional living arrangements comments: BOYFRIEND AND CHILD Spiritual care concerns: No Exam Const: General: healthy appearing and no acute distress Nutritional Appearance: well nourished Orientation/consciousness: patient oriented x3 Limitations: no limitations HENMT: Head: normal to inspection Eyes: Conjunctivae: conjunctivae normal Pupils: Equal, round and reactive pupils present EOM: EOMs intact bilaterally Neck: Neck: normal visual inspection Resp: Effort & Inspection: normal respiratory effort Auscultation: clear to auscultation bilaterally Cardio: Rate: regular rate Rhythm: regular rhythm GI: GI Palp: Yes Soft to palpation Auscultation: normal bowel sounds Skin: General skin exam: normal color Wounds: no wounds Neuro: General: patient oriented x3, moves all extremities, no meningeal signs, no focal motor deficits and CN's II-XI intact bilaterally Cranial nerves: Yes Nystagmus not present Speech: normal speech Extrem: General: normal to inspection and no clubbing, cyanosis or edema Psych: Mental Status: mental status grossly normal Affect: normal affect Attitude: cooperative Course Vital Signs Vital signs: Vital Signs Temperature 98.2 F 02/15/23 10:47 Pulse Rate 85 02/15/23 10:47 Respiratory Rate 16 02/15/23 10:47 Blood Pressure 140/94 H 02/15/23 10:47 Pulse Oximetry 99 02/15/23 10:47 Oxygen Delivery Room Air 02/15/23 10:47 Temperature 98.2 F 02/15/23 10:47 Pulse Rate 80 02/15/23 11:27 Respiratory Rate 16 02/15/23 11:27 Blood Pressure 145/88 H 02/15/23 11:27 Pulse Oximetry 100 02/15/23 11:27 Oxygen Delivery Room Air 02/15/23 10:47 MDM - Dizziness MDM Narrative Medical decision making narrative: pt feels off after fall without LOC several days ago. Pt had visual symptoms at which have now resolved. CT head and neck neg. Pt likely has mild concussion and
[2023-02-15 11:27] VITALS: BP 145/88; PULSE 80; RESP 16; O2SAT 100
== END 2023-02-15 11:33 | disposition home or self-care (01) ==
LOC: ANHED 11:17
PROVIDERS: Emergency Provider Emergency Medicine; PCP Family Medicine
DX: S06.0X0A Concussion without loss of consciousness, initial encounter (principal); F41.9 Anxiety disorder, unspecified; F32.A Depression, unspecified; Z87.891 Personal history of nicotine dependence; W18.30XA Fall on same level, unspecified, initial encounter
CPT/HCPCS: 70450; 72125; 99284

== ENCOUNTER 2023-10-06 14:50 | Emergency (ER) | payer BC, SELFPAY ==
--- NOTE | ~2023-10-06 | XR_ITS ---
XR ankle LT min 3V DATE: 10/06/2023 15:39 INDICATION: Injury, pain and medial and lateral swelling TECHNIQUE: 3 views left ankle COMPARISON: None FINDINGS: Mild predominantly anterior and lateral swelling of the ankle. No fracture or dislocation of the ankle or disruption of the ankle mortise is detected. No periosteal reaction or bone destruction. Prominent posterior calcaneal enthesopathy. IMPRESSION: Mild anterolateral soft tissue swelling; no fracture or dislocation is detected Prominent posterior calcaneal enthesopathy Reviewed, dictated and finalized at location A. ING SPECIALIST
[2023-10-06 14:51] VITALS: BP 121/75; PULSE 107; RESP 18; TEMP 36.4; O2SAT 98
[2023-10-06 15:50] VITALS: BP 126/88; PULSE 89; RESP 16; O2SAT 100
--- NOTE | 2023-10-06 16:17 | ED.LOWEXIN ---
HPI - Extremity Injury (Lower) General Chief Complaint: Extremity Injury, Lower Stated Complaint: left ankle injury Time Seen by Provider: 10/06/23 15:05 Source: patient Mode of arrival: ambulatory Limitations: no limitations History of Present Illness HPI Narrative: Patient is a 33 y/o female who presents to the ED with c/o L ankle pain. Patient reports she was attempting to move a couch down a flight of stairs when she tripped and fell. She thinks she fell down 3-4 stairs. She did not hit her head or lose consciousness. She c/o pain to her left ankle, medially and laterally. She has developed some swelling. Denies any other injuries. No wounds. No knee pain. No numbness or tingling. Related Data Home Medications Medication Instructions Recorded Confirmed multivitamin 1 tablet PO DAILY 11/15/21 02/15/23 bupropion HCl 150 mg 24 hr tablet, mg PO 02/15/23 extended release escitalopram oxalate 10 mg tablet mg 02/15/23 lorazepam 0.5 mg tablet 0.5 mg PO DIRECTED 02/15/23 02/15/23 norgestimate 0.18 mg/0.215 mg/0.25 1 tablet PO DAILY 02/15/23 02/15/23 mg-ethinyl estradiol 25 mcg tablet (Tri-Lo-Trixie) Allergies Allergy/AdvReac Type Severity Reaction Status Date / Time No Known Allergies Allergy Verified 10/06/23 15:47 Review of Systems Review of Systems: CONSTITUTIONAL: Denies fever, chills, or sweats. MUSCULOSKELETAL: See HPI. NEUROLOGIC: Denies tingling, numbness, or weakness. All systems reviewed & are unremarkable except as noted in HPI and below PMFSH Past Medical History Medical History Anxiety Depression Gall bladder disease No acute medical problems Family History Family History Other No acute medical problems Social History Social History Smoking packs per day: 0.5 Smoking cigarettes per day: 10.0 Years smoked: 12 Smoking pack-years: 6.00 Smoking status: Former smoker Tobacco type: cigarettes Smoking end date: 09/13/21 Alcohol intake: current Alcohol use details: 3/MONTH Substance use: never Substance use type: does not use Living arrangements: with family Additional living arrangements comments: BOYFRIEND AND CHILD Spiritual care concerns: No Exam Narrative: GENERAL: Well appearing, obese with BMI of 32.9, non-toxic, in no acute distress. HEAD: Normocephalic, atraumatic. NECK: Supple. No adenopathy, no masses. RESPIRATORY: Airway patent, respirations nonlabored. CARDIOVASCULAR: Regular rate and rhythm without murmurs, rubs, or gallops. Pedal pulses 2+ and equal bilaterally. MUSCULOSKELETAL: Moves all extremities. Strength/ROM intact without gross deformities. Limited ROM of L ankle d/t pain. Significant TTP over medial malleoli with ecchymosis forming. TTP extending across anterior lateral ankle joint, mild swelling noted. Sensation intact. Cap refill intact. SKIN: Warm, dry, normal color. No rashes. NEURO: A&O X3. Speech clear. Cranial nerves II-XII grossly intact. No ataxic movements. PSYCHIATRIC: Appropriate mood and affect. Normal interaction. Course Vital Signs Vital signs: Vital Signs Temperature 97.6 F 10/06/23 14:51 Pulse Rate 107 H 10/06/23 14:51 Respiratory Rate 18 10/06/23 14:51 Blood Pressure 121/75 10/06/23 14:51 Pulse Oximetry 98 10/06/23 14:51 Oxygen Delivery Room Air 10/06/23 14:51 Temperature 97.6 F 10/06/23 14:51 Pulse Rate 99 10/06/23 16:41 Respiratory Rate 20 10/06/23 16:41 Blood Pressure 123/88 10/06/23 16:41 Pulse Oximetry 100 10/06/23 16:41 Oxygen Delivery Room Air 10/06/23 14:51 MDM - Extremity Injury (Lower) MDM Narrative Medical decision making narrative: Patient's injury is consistent with musculoskeletal etiology. No signs of neurologic or vascular compromise on physical exa
[2023-10-06] MEDS: HYDROcodone/acetaminophen (*CRX) 5-325 MG TABLET 1 TAB PO (16:35)
[2023-10-06] MEDS: KETOROLAC (*BKC) 60 MG/2 ML VIAL IM (16:38)
[2023-10-06 16:41] VITALS: BP 123/88; PULSE 99; RESP 20; O2SAT 100
== END 2023-10-06 17:17 | disposition home or self-care (01) ==
PROVIDERS: Emergency Provider Physician Assistant; PCP Family Medicine
DX: S93.402A Sprain of unspecified ligament of left ankle, initial encounter (principal); F41.9 Anxiety disorder, unspecified; F32.A Depression, unspecified; Z87.891 Personal history of nicotine dependence; W10.9XXA Fall (on) (from) unspecified stairs and steps, initial encounter
CPT/HCPCS: 73610; 96372; 99283; A9270; J1885

== ENCOUNTER 2024-01-02 08:34 | Emergency (ER) | payer BC, SELFPAY ==
[2024-01-02 08:45] VITALS: BP 135/86; PULSE 70; RESP 16; TEMP 37.1; O2SAT 100
--- NOTE | 2024-01-02 08:57 | ED.URI ---
HPI - URI/Sore Throat General Chief Complaint: Upper Respiratory Infection Stated Complaint: congestion,nose swollen,red throat Time Seen by Provider: 01/02/24 08:57 Source: patient, RN notes reviewed and old records reviewed Mode of arrival: ambulatory Limitations: no limitations History of Present Illness HPI Narrative: 33-year-old female presents to the [facility] with sinus congestion, sore throat for 5-6 days. Has taken Mucinex Reports throat pain became worse the last 2 days. Onset (ago): day(s) (5-6) Treatments prior to arrival: cold medicine Related Data Home Medications Medication Instructions Recorded Confirmed multivitamin 1 tablet PO DAILY 11/15/21 01/02/24 bupropion HCl 150 mg 24 hr tablet, 150 mg PO DAILY 02/15/23 01/02/24 extended release escitalopram oxalate 10 mg tablet 10 mg PO DAILY 02/15/23 01/02/24 lorazepam 0.5 mg tablet 0.5 mg PO DIRECTED 02/15/23 01/02/24 norgestimate 0.18 mg/0.215 mg/0.25 1 tablet PO DAILY 02/15/23 01/02/24 mg-ethinyl estradiol 25 mcg tablet (Tri-Lo-Trixie) Allergies Allergy/AdvReac Type Severity Reaction Status Date / Time No Known Allergies Allergy Verified 01/02/24 08:39 Review of Systems Review of Systems: All systems reviewed & are unremarkable except as noted in HPI and below Constitutional: Constitutional: Reports no additional constitutional complaints Eyes: Eyes: Reports no additional eye complaints ENT: Reports as per HPI, Reports nasal congestion and Reports sore throat Cardiovascular: Cardiovascular: Reports no additional cardiovascular complaints, Denies chest pain and Denies dyspnea Respiratory: Respiratory: Reports no additional respiratory complaints, Denies chest congestion, Denies cough and Denies dyspnea Gastrointestinal: Gastrointestinal: Reports no additional gastrointestinal complaints, Denies abdominal pain, Denies nausea and Denies vomiting Musculoskeletal: Musculoskeletal: Reports no additional musculoskeletal complaints Integumentary/Breasts: Skin/Breast: Reports system reviewed and no additional complaints, except as docu Neurologic: Reports system reviewed and no additional complaints, except as documented Psychiatric: Psychiatric: Reports no additional psychiatric complaints Allergic/Immunologic: Allergic/Immunologic: Reports no additional allergic/immunologic complaints PMFSH Past Medical History Medical History Anxiety Depression Gall bladder disease No acute medical problems Family History Family History Other No acute medical problems Social History Social History Smoking packs per day: 0.5 Smoking cigarettes per day: 10.0 Years smoked: 12 Smoking pack-years: 6.00 Smoking status: Former smoker Tobacco type: cigarettes Smoking end date: 09/13/21 Alcohol intake: current Alcohol use details: 3/MONTH Substance use: never Substance use type: does not use Living arrangements: with family Additional living arrangements comments: BOYFRIEND AND CHILD Spiritual care concerns: No Comments At the time of my signature, I reviewed and agree with the nursing past medical, surgical, social, and family history. There is no relevant family history pertinent to the patient complaint. Exam Const: General: cooperative, healthy appearing, comfortable, no acute distress, well developed, alert and well nourished Nutritional Appearance: well nourished and obese Orientation/consciousness: patient oriented x3 Limitations: no limitations HENMT: Head: normal to inspection Ears: hearing grossly normal bilaterally, external ears normal, TM's normal bilaterally, EAC's normal, mastoids normal and no periauricular adenopathy Face/Nose/Sinus: Normal external nose present, Normal nares present, Abnormal mucous membranes and turbinates present b
== END 2024-01-02 09:26 | disposition home or self-care (01) ==
PROVIDERS: Emergency Provider Nurse Practitioner; PCP Family Medicine
DX: J06.9 Acute upper respiratory infection, unspecified (principal); J01.90 Acute sinusitis, unspecified; J02.9 Acute pharyngitis, unspecified; Z87.891 Personal history of nicotine dependence; F41.9 Anxiety disorder, unspecified; F32.A Depression, unspecified
CPT/HCPCS: 87081; 87880; 99213; G0463